=== PATIENT | male | born 1965 | race Caucasian/White ===

== ENCOUNTER 2021-05-14 14:46 | Emergency (ER) | payer BC ==
[~2021-05-14] VITALS: Ht 121.9 cm; Wt 72.6 kg
--- NOTE | 2021-05-14 15:07 | NUR ---
Patient to ER bed H4 to gown for evaluation. Side rails up.
[2021-05-14 15:08] VITALS: BP_SYST 139
--- NOTE | 2021-05-14 15:15 | NUR ---
Patient brought in complaining of head, neck , back and right shoulder pain. patient had slip and fall off 5 foot dock onto concrete surface with loss of consciousness. No nausea or vomiting. No chest pain or respiratory distress or abdominal pain. Pain is described as 9/10, nonradiating, constant, dull, worse with movement, better with rest.
[2021-05-14] MEDS ORDERED: MORPHINE 4 MG INJ. 4 MG/ML VIAL IM ONE (15:30)
--- NOTE | 2021-05-14 17:10 | NUR ---
ER Physician at bedside. C-spine cleared by . Backboard removed with log roll technique. Moves all extremities before and after backboard removal. Hard collar removed by Dr. David
--- NOTE | 2021-05-14 17:15 | NUR ---
patient able to ambulate 3 steps but not able to stand up straight. md navarro
[2021-05-14] MEDS ORDERED: CYCL10TA24 PO (17:19)
[2021-05-14] MEDS ORDERED: IBUP-1969 PO (17:19)
[2021-05-14] MEDS ORDERED: IBUPROFEN 600 MG TABLET ONE (18:12)
[2021-05-14] MEDS ORDERED: CYCLOBENZAPRINE HCL 10 MG TABLET (FLEXERIL) ONE (18:13)
[2021-05-14] MEDS ORDERED: IBUPROFEN 600 MG TABLET PO ONE (18:15)
[2021-05-14] MEDS ORDERED: CYCLOBENZAPRINE HCL 10 MG TABLET (FLEXERIL) PO ONE (18:15)
[2021-05-14 18:33] VITALS: BP_SYST 126
--- NOTE | 2021-05-14 18:33 | NUR ---
Patient given written and verbal discharge instructions and verbalizes understanding. ER MD discussed with patient the results and treatment provided. Patient in stable condition. ID arm band removed. Rx of flexeril and ibuprofen given. Patient educated on pain management and to follow up with PMD. Pain Scale 0/10 Opportunity for questions provided and answered. Medication side effect fact sheet provided.
== END 2021-05-14 18:33 | disposition home or self-care (01) ==
LOC: SED 14:46
DX: S16.1XXA Strain of muscle, fascia and tendon at neck level, initial encounter (principal); S40.011A Contusion of right shoulder, initial encounter; S20.221A Contusion of right back wall of thorax, initial encounter; S30.0XXA Contusion of lower back and pelvis, initial encounter; S09.90XA Unspecified injury of head, initial encounter; W01.198A Fall on same level from slipping, tripping and stumbling with subsequent striking against other object, initial encounter; Y93.89 Activity, other specified; Y92.89 Other specified places as the place of occurrence of the external cause; Y99.8 Other external cause status
CPT/HCPCS: 70450; 71250; 72125; 72128; 72131; 73020; 73060; 76376; 96372; 99284; J2270